=== PATIENT | female | born 1995 | race Caucasian/White ===

== ENCOUNTER → 2019-07-26 | Outpatient (REF) | payer OTHER ==
[2019-07-26 13:56] LABS: HEMATOCRIT 41.1 % (36.0-47.0); MEAN CORPUSCULAR HGB CONC 34.1 g/dl (32.0-36.5); PLATELET COUNT, AUTOMATED 176 10^3/uL (150-450); RED BLOOD COUNT 4.67 10^6/uL (4.00-5.40); WHITE BLOOD COUNT 9.2 10^3/uL (4.0-10.0)
[2019-07-26 14:56] LABS: HCG, SERUM QUANTITATIVE 122409 MIU/ML; HEPATITIS C VIRUS ABY INDEX 0.1 INDEX (<0.8); HIV 1&2 SCREEN CENTAUR NEGATIVE (NEGATIVE); RUBELLA IgG QUALITATIVE IMMUNE (IMMUNE)
== END ==
LOC: M LAB REF 12:41
PROVIDERS: ATTEND Obstetrics & Gynecology
DX: Z34.81 Encounter for supervision of other normal pregnancy, first trimester (principal)

== ENCOUNTER 2019-11-04 14:06 | Outpatient (CLI) | payer OTHER ==
[~2019-11-04] VITALS: Ht 165.1 cm; Wt 90.0 kg
[2019-11-04 14:24] VITALS: BP 124/68
[2019-11-04] MEDS ORDERED: ZYRTTAB8 PO (14:30)
[2019-11-04] MEDS ORDERED: ACET1LIQ PO (14:30)
[2019-11-04] MEDS ORDERED: STUACAP PO (14:30)
[2019-11-04 15:19] LABS: APPEARANCE, URINE CLEAR (CLEAR); BACTERIA, URINE AUTO 1+ (NEGATIVE); BILIRUBIN, URINE AUTO NEGATIVE (NEGATIVE); BLOOD, URINE BLOOD 1+ (NEGATIVE); COLOR, URINE STRAW (YELLOW); GLUCOSE, URINE (UA) AUTO NEGATIVE (NEGATIVE); KETONE, URINE AUTO NEGATIVE (NEGATIVE); LEUKOCYTE ESTERASE, URINE AUTO NEGATIVE (NEGATIVE); NITRITE, URINE AUTO NEGATIVE (NEGATIVE); PROTEIN, URINE AUTO NEGATIVE (NEGATIVE); RBC, URINE AUTO 0 /HPF (0-3); SPECIFIC GRAVITY URINE AUTO 1.006 (1.002-1.035); SQUAMOUS EPITHELIAL CELL UR AU 2 /HPF (0-6); UROBILINOGEN, URINE AUTO 0.2 mg/dL (0.0-2.0); WBC, URINE AUTO 3 /HPF (0-3)
[2019-11-04] MEDS ORDERED: ONDANSETRON 4MG/2ML VIAL (J2405) As Ordered ONE (16:25)
[2019-11-04] MEDS ORDERED: ONDANSETRON 4MG/2ML VIAL (J2405) IV SCH (16:30)
[2019-11-04 16:43] LABS: HEMATOCRIT 33.8 % (36.0-47.0); MEAN CORPUSCULAR HEMOGLOBIN 29.2 pg (27.0-33.0); MEAN CORPUSCULAR HGB CONC 32.5 g/dl (32.0-36.5); MEAN CORPUSCULAR VOLUME 89.7 fl (80.0-96.0); PLATELET COUNT, AUTOMATED 127 10^3/uL (150-450); RED BLOOD COUNT 3.77 10^6/uL (4.00-5.40); WHITE BLOOD COUNT 11.6 10^3/uL (4.0-10.0)
[2019-11-04 17:05] VITALS: BP_SYST 131; BP_SYST 137; BP_DIAS 77
[2019-11-04 17:12] LABS: ALBUMIN 2.7 GM/DL (3.2-5.2); ALT/SGPT 20 U/L (12-78); BILIRUBIN,TOTAL 0.4 MG/DL (0.2-1.0); BLOOD UREA NITROGEN 6 MG/DL (7-18); CALCIUM LEVEL 8.5 MG/DL (8.5-10.1); CARBON DIOXIDE LEVEL 26 MEQ/L (21-32); CHLORIDE LEVEL 106 MEQ/L (98-107); GLOMERULAR FILTRATION RATE > 60.0 (>60); GLUCOSE, FASTING 76 MG/DL (70-100); POTASSIUM SERUM 3.9 MEQ/L (3.5-5.1); SODIUM LEVEL 140 MEQ/L (136-145); TOTAL PROTEIN 5.8 GM/DL (6.4-8.2)
[2019-11-04] MEDS: MORPHINE 4 MG/ML 1ML VIAL/SYRINGE (J2270) IV PRN ×2 (17:14→19:29)
--- NOTE | 2019-11-04 17:19 | IPNPDOC ---
Text Note Date of Service The patient was seen on 11/04/19. NOTE Subjective: Patient is a 24-year-old female who is a at 27.4 weeks ges tation with an DIVINA of 02/03/20 based off of her LMP and consistent with her first trimester ultrasound. She initiated care in her first trimester with [facility] and transferred care to [facility]. Her has been uncomplicated up until this point. She presents to L&D with complaints of pain in the right side of her back that started this morning. She reports that the pain is localized ot the right side and slightly wraps to the front. She also reports nausea and vomiting that comes in waves. She states the pain is constant and dull and rates it an 8/10. The patient reports that she is also having a difficult time voiding. She feels like she has to but she finds it harder to do it. She denies cramping, contractions, leaking of fluid, or vaginal bleeding. She reports active movement. Since the patient has had 2 liters of fluid she reports it is much easier to void and has voided more than 2 times. Medical History: seasonal allergies Surgical history: wisdom tooth Social History: single, non-smoker, no history of alcohol abuse or drug abuse. She denies history of physical abuse, emotional abuse, or sexual abuse. Family History: Paternal grandfather due to unknown causes and maternal grandfather due to accident. Objective: See ultrasound report and labs below. A+O x3. Respiratory rate is regular without use of accessory muscles. Abdomen is soft and non-tender to palpation. +CVA tenderness of right flank. FHR 125, moderate variability, positive accelerations, no decelerations. Contractions occasional lasting 30-60 seconds. Assessment: IUP at 27.4 weeks gestation, right-sided hydronephrosis with obstruction, thrombocytopenia Plan: Dr. Bruner consulted on plan of care. Patient to stay in L&D for pain management and we will consult urology tomorrow morning. Reviewed diagnosis of hydronephrosis with right sided obstruction with patient and mother. Reviewed options for pain management. Plan of care reviewed with patient. Will continue with LR at 125 cc per hour. Will continue to do external FM every 4 hours. VS,Fishbone, I+O VS, Fishbone, I+O Item Value Date Time Sodium Level 140 MEQ/L 11/04/19 1622 Potassium Level 3.9 MEQ/L 11/04/19 1622 Chloride Level 106 MEQ/L 11/04/19 1622 Carbon Dioxide Level 26 MEQ/L 11/04/19 1622 Anion Gap 8 MEQ/L 11/04/19 1622 Blood Urea Nitrogen 6 MG/DL L 11/04/19 1622 Creatinine 0.80 MG/DL 11/04/19 1622 Glomerular Filtration Rate > 60.0 11/04/19 1622 Fasting Glucose 76 MG/DL 11/04/19 1622 Calcium Level 8.5 MG/DL 11/04/19 1622 Total Bilirubin 0.4 MG/DL 11/04/19 1622 Aspartate Amino Transf (AST/SGOT) 22 U/L 11/04/19 1622 Alanine Aminotransferase (ALT/SGPT) 20 U/L 11/04/19 1622 Alkaline Phosphatase 88 U/L 11/04/19 1622 Total Protein 5.8 GM/DL L 11/04/19 1622 Albumin 2.7 GM/DL L 11/04/19 1622 Albumin/Globulin Ratio 0.87 L 11/04/19 1622 Laboratory Tests 11/04/19 16:22 Vital Signs Date Time Temp Pulse Resp B/P (MAP) Pulse Ox O2 Delivery O2 Flow Rate FiO2 11/04/19 17:14 18 Room Air 11/04/19 17:05 97.6 91 137/77 (97) Item Value Date Time Urine Color STRAW 11/04/19 1459 Urine Appearance CLEAR 11/04/19 1459 Urine pH 8.0 UNITS 11/04/19 1459 Urine Specific Tucker 1.006 11/04/19 1459 Urine Protein NEGATIVE mg/dL 11/04/19 1459 Urine Glucose (Auto)(UA) NEGATIVE mg/dL 11/04/19 1459 Urine Ketones (Auto) NEGATIVE mg/dL 11/04/19 1459 Urine Blood 1+ H 11/04/19 1459 Urine Nitrite NEGATIVE 11/04/19 1459 Urine Bilirubin NEGATIVE 11/04/19 1459 Urine Urobilinogen 0.2 mg/dL 11/04/19 1459 Urine Leukocyte Esterase (Auto) NEGATIVE 11/04/19 1459 Urine WBC (Auto) 3 /HPF 11/04/19 1459 Urine RBC (Auto) 0 /HPF 11/04/19 1459 Urine Hyaline Casts (Auto) 0 /LPF 11/04/19 1459 Urine Bacteria (Auto) 1+ H 11/04/19 1459 Urine Squamous Epithelial Cells 2 /HPF 11/04/19 1459 EXAMINATION REQUESTED: RENAL US REASON FOR PATIENT VISIT: RIGHT SIDE BACK PAIN REASON FOR EXAM/COMMENT: right sided flank pain Urinary tract sonography: History: Right flank pain. Findings: Scanning of the level urinary bladder demonstrates multiple normal ureteral jet phenomenon emanating from the left ureter. Note the ingestion is seen on color Doppler interrogation of the bladder lumen from the right ureter during the exam. heart rate is recorded at 153 beats per minute. Renal cortical echogenicity pattern is normal and contours are smooth. There is moderate right-sided hydronephrosis. The right kidney is enlarged compared to the left consistent with significant obstructive uropathy. The right kidney measures 14.7 x 6.3 x 6.5 cm. Left renal dimensions are 11.8 x 5.0 x 5.2 cm. No left-sided hydronephrosis is seen. No mass lesion is observed. Impression: Moderate right-sided hydronephrosis with enlargement of the right kidney and absence of emptying ureteral jet on the right consistent with obstructive uropathy. No stone is seen. A normal left kidney. NADER CALLAWAY CNM Nov 04, 2019 17:19
[2019-11-04] MEDS ORDERED: OXYC1TAB23 PO (18:37)
--- NOTE | 2019-11-04 18:45 | REP ---
Urinary tract sonography: History: Right flank pain. Findings: Scanning of the level urinary bladder demonstrates multiple normal ureteral jet phenomenon emanating from the left ureter. Note the ingestion is seen on color Doppler interrogation of the bladder lumen from the right ureter during the exam. heart rate is recorded at 153 beats per minute. Renal cortical echogenicity pattern is normal and contours are smooth. There is moderate right-sided hydronephrosis. The right kidney is enlarged compared to the left consistent with significant obstructive uropathy. The right kidney measures 14.7 x 6.3 x 6.5 cm. Left renal dimensions are 11.8 x 5.0 x 5.2 cm. No left-sided hydronephrosis is seen. No mass lesion is observed. Impression: Moderate right-sided hydronephrosis with enlargement of the right kidney and absence of emptying ureteral jet on the right consistent with obstructive uropathy. No stone is seen. A normal left kidney. Electronically Signed by Bruce Da Silva MD 11/05/2019 03:23 P
[2019-11-04] MEDS ORDERED: PERCOCET 5MG/325MG TAB PO ONE (19:00)
[2019-11-04] MEDS ORDERED: PERCOCET 5MG/325MG TAB PO PRN (19:15)
[2019-11-04] MEDS: LR 1,000 ML IV SCH (19:30)
[2019-11-04 22:43] VITALS: BP 115/66
[2019-11-04] MEDS ORDERED: PROMETHAZINE INJ 25 MG/ML VIAL (J2550) IV ONE (23:00)
[2019-11-04] MEDS ORDERED: BUTORPHANOL 2 MG/ML INJ (J0595) IV ONE (23:00)
[2019-11-05] MEDS: LR 1,000 ML IV SCH ×2 (03:39→12:13)
[2019-11-05 04:02] VITALS: BP 98/56
[2019-11-05 07:28] VITALS: BP 90/53
[2019-11-05 07:30] VITALS: BP 117/65
--- NOTE | 2019-11-05 09:28 | REP ---
Urinary tract sonography: History: Right renal obstruction. The patient reports improvement in symptoms. Comparison is made with a urinary tract sonography done the previous day. Findings: Scanning at the level urinary bladder is unremarkable. heart rate is recorded during the exam of 139 beats per minute. Renal cortical echogenicity pattern is normal and contours are smooth on both sides. Moderate right-sided hydronephrosis persists essentially unchanged. No hydronephrosis is seen on the left. The right kidney is more symmetrical with the left in size today measuring 13.0 x 7.1 x 7.0 cm. Left renal dimensions are 12.1 x 4.3 x 4.9 cm. Doppler resistive indices in the kidneys are 0.65 on the right and 0.63 on the left. Impression: Moderate right-sided hydronephrosis persists. The right kidney appears somewhat less swollen. Otherwise unchanged. Electronically Signed by Bruce Da Silva MD 11/05/2019 03:25 P
[2019-11-05 11:01] VITALS: BP 97/51
[2019-11-05 12:49] VITALS: BP 99/62
[2019-11-05 12:50] VITALS: BP 101/69
--- NOTE | 2019-11-05 12:55 | IPN ---
DATE: 11/04/2019 SUBJECTIVE: 24-year-old, (G) 1, female at 27 and 5/7 weeks gestation, hospital day #2 with right flank pain. Pain resolved completely overnight. Urination is normal. She has no blood in her urine. She is not requiring any pain medicines for the entire evening. OBJECTIVE: Afebrile. Vital signs stable. Lungs clear. Heart regular rate and rhythm. Abdomen nontender, gravid. No CVA tenderness. heart tones category I, contractions rare. Extremities nontender. Repeat renal ultrasound improvement in hydronephrosis on the right. Normal left kidney. ASSESSMENT: 24-year-old, (G) 1, 27 and 5/7 weeks gestation with obstruction of the right renal collecting system that has now resolved spontaneously. I spoke with Dr. Delgadillo from urology who agrees that no further intervention is necessary at this time. Patient will be discharged home. She will continue hydration. She will followup in the office on 11/14/2019 for a appointment.
== END 2019-11-05 13:11 | disposition home or self-care (01) ==
LOC: M LDO 14:06
PROVIDERS: ATTEND Advanced Practice Midwife
DX: O26.893 Other specified pregnancy related conditions, third trimester (principal); M54.5 Low back pain; O21.2 Late vomiting of pregnancy; R39.198 Other difficulties with micturition; O99.119 Other diseases of the blood and blood-forming organs and certain disorders involving the immune mechanism complicating pregnancy, unspecified trimester; D69.6 Thrombocytopenia, unspecified; O99.89 Other specified diseases and conditions complicating pregnancy, childbirth and the puerperium; N13.2 Hydronephrosis with renal and ureteral calculous obstruction; Z3A.27 27 weeks gestation of pregnancy
CPT/HCPCS: 36415; 59025; 76775; 80053; 81001; 85027; 87086; 96361; 96374; 96375; 96376; G0378; G0463; J0595; J2270; J2405

== ENCOUNTER → 2019-11-11 | Outpatient (CLI) | payer OTHER ==
[~2019-11-11] MED LIST: ACET1LIQ PO; OXYC1TAB23 PO; STUACAP PO; ZYRTTAB8 PO
[2019-11-11 18:10] LABS: HEMATOCRIT 34.5 % (36.0-47.0); MEAN CORPUSCULAR HEMOGLOBIN 28.9 pg (27.0-33.0); MEAN CORPUSCULAR HGB CONC 31.9 g/dl (32.0-36.5); MEAN CORPUSCULAR VOLUME 90.6 fl (80.0-96.0); PLATELET COUNT, AUTOMATED 159 10^3/uL (150-450); RED BLOOD COUNT 3.81 10^6/uL (4.00-5.40); WHITE BLOOD COUNT 9.4 10^3/uL (4.0-10.0)
== END ==
LOC: M PLALAB 13:57
PROVIDERS: ATTEND Advanced Practice Midwife
DX: Z34.03 Encounter for supervision of normal first pregnancy, third trimester (principal)

== ENCOUNTER → 2020-01-02 | Outpatient (REF) | payer OTHER | LOC: M SFHCWAGY 16:57 | PROVIDERS: ATTEND Advanced Practice Midwife | DX: Z36.89 Encounter for other specified antenatal screening (principal); Z3A.00 Weeks of gestation of pregnancy not specified ==

== ENCOUNTER → 2020-01-02 | Outpatient (REF) | payer OTHER ==
[2020-01-02 18:44] LABS: INFLUENZA A AMPLIFICATION NEGATIVE (NEGATIVE); INFLUENZA B AMPLIFICATION POSITIVE (NEGATIVE)
== END ==
LOC: M SFHCWAGY 16:48
PROVIDERS: ATTEND Advanced Practice Midwife
DX: R05 Cough (principal)

== ENCOUNTER → 2020-01-08 | Outpatient (CLI) | payer OTHER ==
[2020-01-08 14:05] LABS: HEMATOCRIT 38.6 % (36.0-47.0); HEMOGLOBIN 12.3 g/dl (12.0-15.5); MEAN CORPUSCULAR HEMOGLOBIN 27.5 pg (27.0-33.0); MEAN CORPUSCULAR HGB CONC 31.9 g/dl (32.0-36.5); MEAN CORPUSCULAR VOLUME 86.2 fl (80.0-96.0); PLATELET COUNT, AUTOMATED 137 10^3/uL (150-450); RED BLOOD COUNT 4.48 10^6/uL (4.00-5.40); WHITE BLOOD COUNT 7.4 10^3/uL (4.0-10.0)
== END ==
LOC: M PLALAB 12:27
PROVIDERS: ATTEND Advanced Practice Midwife
DX: Z34.03 Encounter for supervision of normal first pregnancy, third trimester (principal); Z36.89 Encounter for other specified antenatal screening

== ENCOUNTER 2020-01-18 13:05 | Inpatient (IN) | payer BC, OTHER ==
[2020-01-18] VITALS (8 sets, daily range): BP systolic 128–145; BP diastolic 71–91
[~2020-01-18] VITALS: Ht 167.6 cm; Wt 96.6 kg
[2020-01-18] MEDS ORDERED: PENICILLIN G POTASSIUM IV 5 MU in D5W MINI-BAG PLUS 100 ML IV STA (13:30)
[2020-01-18 13:57] LABS: HEMATOCRIT 39.4 % (36.0-47.0); HEMOGLOBIN 12.5 g/dl (12.0-15.5); MEAN CORPUSCULAR HEMOGLOBIN 26.8 pg (27.0-33.0); MEAN CORPUSCULAR HGB CONC 31.7 g/dl (32.0-36.5); MEAN CORPUSCULAR VOLUME 84.4 fl (80.0-96.0); PLATELET COUNT, AUTOMATED 175 10^3/uL (150-450); RED BLOOD COUNT 4.67 10^6/uL (4.00-5.40); WHITE BLOOD COUNT 11.8 10^3/uL (4.0-10.0)
[2020-01-18 14:14] LABS: ALT/SGPT 20 U/L (12-78); BILIRUBIN,TOTAL 0.5 MG/DL (0.2-1.0); CREATININE FOR GFR 0.62 MG/DL (0.55-1.30); GLOMERULAR FILTRATION RATE > 60.0 (>60); LDH LACTATE DEHYDROGENASE 216 U/L (84-246); URIC ACID 3.6 MG/DL (2.6-6.0)
--- NOTE | 2020-01-18 14:21 | HPEPDOC ---
Obstetrical History & Physical General Date of Admission Jan 18, 2020 at 13:25 Primary Care Physician: NADER CALLAWAY CNM History of Present Illness Patient is a 24 year-old female who is a at 38.2 weeks gestation with an DIVINA of 02/03/20 based off of her LMP and consistent with her first trimester ultrasound. She initiated care in her first trimester with [facility] and transferred care at 29 weeks to [facility]. Her has been complicated by hydronephrosis at 27 weeks with a blockage that resolved and gestational thrombocytopenia. She presents to L&D with complaints of leaking of fluid. She reports she had a gush of fluid at 11:00 this morning that was clear fluid and she continues to leak. She does report cramping. She reports active movement and denies vaginal bleeding. Chief Complaint: Active Labor, Rupture of membranes Information Provided By: Patient Age: 24 : 1 Term: 0 Pre-term: 0 Abortions: 0 Livin Care Care: Good Care Dating Final EDC: Feb 03, 2020 Final EDC by: LMP EGA at Admission: 38.2 Antepartum Course Diagnos(e)s thrombocytopenia hydronephrosis with blockage-resolved preeclampsia-diagnosed today Height (inches): 65 Pre- weight (lbs.): 160 Admission Weight (lbs.): 218 Change in Weight (lbs.): 58 Past Medical History Past Obstetrical History : Past Obstetrical History: [employer] History: No pertinent history Past Medical History Medical History No current conditions Surgical History: [place] teeth Family History Significant Family History: No pertinent family hx Social History Marital Status: Single Family situation: Spouse/partner home Psychosocial History: No pertinent psych hx * Smoker: non-smoker Alcohol: Denies Drugs: denies Abuse Violence Screening Have you been hit/kicked/slapp: No Have you been sexually assault: No Imunizations Tdap status: current Allergies Coded Allergies: No Known Drug Allergies (Verified Allergy, Unknown, 11/04/19) Medications Miscellaneous Medications Pnv No.63/Iron,Carb/Folic/Dha (Wes One Capsule) 1 Each Capsule, 1 CAP PO Physical Examination Physical Examination GENERAL: Alert and oriented times three. BREAST: . ABDOMEN: Gravid and non-tender to touch. FETUS: Is vertex (VTX) by sterile vaginal examination (SVE), fetus is vertex (VTX) by [place]. HEART RATE: Regular rate and rhythm. LUNGS: Clear to auscultation (CTA). EXTREMITIES: Bilateral edema of legs and feet. No clonus. Deep tendon reflexes (DTRs) + 2. Vital Signs/I&O Vital Signs Label Value Date Time Patient Temperature 97.6 degrees F 01/18/20 1319 Temperature Source Temporal 01/18/20 1319 Pulse 101 01/18/20 1319 Respiratory Rate 20 bpm 01/18/20 1319 Blood Pressure Assessment 145/90 (108) 01/18/20 1319 Source Automatic Cuff (NIBP) Laboratory Data [facility] Item Value Date Time Urine Random Creatinine 191.0 MG/DL 01/18/20 1407 Urine Random Total Protein 72.0 MG/DL H 01/18/20 1407 Item Value Date Time Creatinine 0.62 MG/DL 01/18/20 1339 Glomerular Filtration Rate > 60.0 01/18/20 1339 Uric Acid 3.6 MG/DL 01/18/20 1339 Total Bilirubin 0.5 MG/DL 01/18/20 1339 Aspartate Amino Transf (AST/SGOT) 20 U/L 01/18/20 1339 Alanine Aminotransferase (ALT/SGPT) 20 U/L 01/18/20 1339 Lactate Dehydrogenase 216 U/L 01/18/20 1339 CBC/BMP Item Value Date Time White Blood Count 11.8 10^3/uL H 01/18/20 1338 Red Blood Count 4.67 10^6/uL 01/18/20 1338 Hemoglobin 12.5 g/dl 01/18/20 1338 Hematocrit 39.4 % 01/18/20 1338 Mean Corpuscular Volume 84.4 fl 01/18/20 1338 Mean Corpuscular Hemoglobin 26.8 pg L 01/18/20 1338 Mean Corpuscular Hemoglobin Concent 31.7 g/dl L 01/18/20 1338 Red Cell Distribution Width 14.5 % 01/18/20 1338 Platelet Count 175 10^3/uL 01/18/20 1338 Nucleated Red Blood Cells % (auto) 0.0 % 01/18/20 1338 Urine Culture: No Growth Pertinent Laboratoy Data Blood Type: O+ RBC Antibody Screen: Negative HIV: Negative Hepatitis B: Negative Hepatitis C: Negative Rapid Plasma Reagin: Nonreactive Rubella: Immune Chlamydia/Gonorrhea: Negative Group B Streptococcus: Positive Glucose Tolerance Test: 109 Anatomy Ultrasound Placenta Location: Anterior Normal Anatomy: Yes Placenta Previa: No Vaginal Examination Dilation: 5 cm Effacement: 80% Station: -1 Cervical Consistency: Soft Cervical Position: Anterior Presentation: Cephalic presentation Position: Vertex (occiput) Assessment Heart Rate (FHR): 135 Variability: Moderate Accelerations: Positive Decelerations: None Tocometer Contractions: Yes Frequency: regular, other (2-3 minutes) Strength: palpated as strong Multi-drug resistant Organism: No history of MDRO Assessment/Plan Assessment IUP at 38.2 weeks gestation active labor at term Category I FHR tracing GBS positive preclampsia Plan Admit to L&D. OOB ad eliz. Diet: clears. Group B Streptococcus positive. Start antibiotics per order. Labs and intravenous (IV) per unit protocol. Preeclamptic labs and spot urine obtained due to elevated BP. Lactated Ringers (LR): Bolus as needed and 500 cc prior to epidural if patient desires one. Anesthesia consult per patient's request. Anticipate cervical change and . C-S as appropriate. NADER CALLAWAY CNM Jan 18, 2020 14:21
[2020-01-18] MEDS ORDERED: OXYTOCIN 30 UNITS IN 0.9% NaCl 500ML IV BAG (J2590) As Ordered ONE (15:56)
[2020-01-18] MEDS ORDERED: PENICILLIN G POTASSIUM IV 2.5 MU in IV 1 EA IV SCH (18:00)
[2020-01-18] MEDS ORDERED: DOCUSATE SODIUM 100 MG CAP PO PRN (18:15)
[2020-01-18] MEDS ORDERED: MEASLES,MUMPS,RUBELLA VACCINE INJ (MMR-II) (90707) SC SCH (18:15)
[2020-01-18] MEDS ORDERED: ACETAMINOPHEN 500 MG TAB PO PRN (18:15)
[2020-01-18] MEDS ORDERED: METHYLERGONOVINE MALEATE 0.2 MG TAB PO PRN (18:15)
[2020-01-18] MEDS ORDERED: ANUSOL HC CREAM 30GM TOP PRN (18:15)
[2020-01-18] MEDS ORDERED: ACETAMINOPHEN TAB 650MG DOSE (2X325MG) PO PRN (18:15)
[2020-01-18] MEDS ORDERED: RHOGAM 300 MCG (1500 IU) INJ (J2790) IM SCH (18:15)
[2020-01-18] MEDS ORDERED: DIBUCAINE 1% OINTMENT 30GM TOP PRN (18:15)
[2020-01-18] MEDS ORDERED: IBUPROFEN 600 MG TAB PO PRN (18:15)
[2020-01-18] MEDS ORDERED: LIDOCAINE 1% MDV 20ML VIAL INFIL ONE (18:15)
--- NOTE | 2020-01-18 18:20 | DNPDOC ---
[facility] Delivery Note Delivery Note DATE OF DELIVERY: 01/18/2020 at 1656 PREDELIVERY DIAGNOSIS: 38-2/7 weeks' gestation and labor. POST DELIVERY DIAGNOSIS: Delivered. PROCEDURE: Spontaneous vaginal delivery. PRODUCTION MAINTENANCE MECHANIC: Nader Marrero CNM, VICENTA ANESTHESIA: none. ESTIMATED BLOOD LOSS: 350 mL. FINDINGS: 7 pounds 2 ounces; 3230 grams; male infant, Score 8/8, nuchal cord times 1 tight, preeclampsia. DELIVERY SUMMARY: Patient is a 24-year-old female who is now a at 38.2 weeks gestation who presented to L&D with spontaneous rupture and active labor. She progressed to fully dilated at 1618 and pushed to a living male in the OA position with restitution to ROT at 1656. A tight nuchal cord was noted. The anterior shoulder delivered with ease and the corpus delivered via [place]. The baby was placed on the maternal abdomen, [id number], active and crying. The cord was clamped after pulsation ceased and cut by the FOB. The placenta delivered spontaneously at 1707. Uterine hemostasis was achieved via rapid infusion of IV Pitocin and fundal massage. The perineum, vagina, and cervix was inspected and the patient was found to have a right labial split. Lidocaine 1% was used for the repair. A 4.0 Vicryl Rapide 4.0 RB-1 was used to approximate the labia. Mom and baby are in stable condition. They plan on naming their son Tosin Lynn. All counts of instruments, sharps and sponges were correct. NADER MARRERO CNM Jan 18, 2020 18:20
[2020-01-18] MEDS ORDERED: OXYTOCIN DRIP 30 UNITS in IV 1 EA IV SCH (18:30)
[2020-01-18] MEDS: IBUPROFEN 800 MG TAB PO PRN (23:02)
[2020-01-19 06:00] VITALS: BP 132/79
[2020-01-19 07:36] LABS: ALT/SGPT 13 U/L (12-78); BILIRUBIN,TOTAL 0.5 MG/DL (0.2-1.0); CREATININE FOR GFR 0.62 MG/DL (0.55-1.30); GLOMERULAR FILTRATION RATE > 60.0 (>60); LDH LACTATE DEHYDROGENASE 211 U/L (84-246); URIC ACID 3.6 MG/DL (2.6-6.0)
[2020-01-19] MEDS: PRENATAL VITAMINS CHEWABLE TABLET PO SCH (08:27)
[2020-01-19] MEDS: IBUPROFEN 800 MG TAB PO PRN (17:22)
[2020-01-19 18:00] VITALS: BP 137/84
[2020-01-20] MEDS: IBUPROFEN 800 MG TAB PO PRN ×2 (02:03→16:21)
[2020-01-20] MEDS ORDERED: IBUP80TA PO (04:33)
[2020-01-20] MEDS ORDERED: ACET-683 PO (04:33)
[2020-01-20 05:00] VITALS: BP 133/85
[2020-01-20] MEDS: PRENATAL VITAMINS CHEWABLE TABLET PO SCH (08:44)
== END 2020-01-20 18:40 | disposition home or self-care (01) | DRG 560 ==
LOC: M LDO 13:05 → M LDI 13:25 → M OBS 19:23
PROVIDERS: ADMIT Advanced Practice Midwife; ATTEND Advanced Practice Midwife
PROC: 10E0XZZ Delivery of Products of Conception, External Approach (ICD-10-PCS; principal; 2020-01-18)
PROC: 0HQ9XZZ Repair Perineum Skin, External Approach (ICD-10-PCS; 2020-01-18)
DX: O14.04 Mild to moderate pre-eclampsia, complicating childbirth (principal); Z3A.38 38 weeks gestation of pregnancy; Z37.0 Single live birth; O99.89 Other specified diseases and conditions complicating pregnancy, childbirth and the puerperium; N13.30 Unspecified hydronephrosis; O99.12 Other diseases of the blood and blood-forming organs and certain disorders involving the immune mechanism complicating childbirth; D69.6 Thrombocytopenia, unspecified; O99.824 Streptococcus B carrier state complicating childbirth; O69.1XX0 Labor and delivery complicated by cord around neck, with compression, not applicable or unspecified; O70.0 First degree perineal laceration during delivery

== ENCOUNTER 2021-10-24 15:35 | Inpatient (IN) | payer BC, OTHER ==
[~2021-10-24] VITALS: Ht 165.1 cm; Wt 64.0 kg
[~2021-10-24 15:35] MED LIST changes: +ACET-683 PO; +ACET160L16 PO; -ACET1LIQ PO; +IBUP80TA PO
[2021-10-24] MEDS ORDERED: LEXA1TAB2 PO (15:45)
[2021-10-24] MEDS ORDERED: PRENTAB53 PO (15:45)
[2021-10-24] MEDS ORDERED: METO10TA2 PO (15:45)
[2021-10-26] MEDS ORDERED: ONDA4TAB6 PO (04:48)
[2021-10-26] MEDS ORDERED: Promethazine Suppository PR (04:48)
[2021-10-26] MEDS ORDERED: TRAN1DIS4 TOP (04:48)
[2021-10-28 14:00] VITALS: BP 118/58
== END 2021-10-28 15:13 | disposition home or self-care (01) | DRG 566 ==
LOC: M ED 15:35 → M ED INP 10-25 00:57 → ENRESERV 10-25 01:31 → M OBS 10-25 02:17
PROVIDERS: ADMIT Specialist; ATTEND Specialist
DX: O21.0 Mild hyperemesis gravidarum (principal); Z3A.01 Less than 8 weeks gestation of pregnancy; Z79.899 Other long term (current) drug therapy; Z20.822 Contact with and (suspected) exposure to COVID-19; O99.611 Diseases of the digestive system complicating pregnancy, first trimester; K59.00 Constipation, unspecified

== ENCOUNTER → 2021-12-01 | Outpatient (CLI) | payer OTHER, BC ==
[~2021-12-01] MED LIST changes: +LEXA1TAB2 PO; +METO10TA2 PO; +ONDA4TAB6 PO; +PRENTAB53 PO; +Promethazine Suppository PR; +TRAN1DIS4 TOP
[2021-12-01 11:01] LABS: HEMATOCRIT 40.5 % (36.0-47.0); HEMOGLOBIN 13.5 g/dl (12.0-15.5); MEAN CORPUSCULAR HEMOGLOBIN 29.7 pg (27.0-33.0); MEAN CORPUSCULAR HGB CONC 33.3 g/dl (32.0-36.5); MEAN CORPUSCULAR VOLUME 89.2 fl (80.0-96.0); PLATELET COUNT, AUTOMATED 190 10^3/uL (150-450); RED BLOOD COUNT 4.54 10^6/uL (4.00-5.40); WHITE BLOOD COUNT 8.9 10^3/uL (4.0-10.0)
[2021-12-01 11:35] LABS: ALT/SGPT 20 U/L (12-78); BILIRUBIN,TOTAL 0.7 MG/DL (0.2-1.0); CREATININE FOR GFR 0.45 MG/DL (0.55-1.30); GLOMERULAR FILTRATION RATE > 60.0 (>60); LDH LACTATE DEHYDROGENASE 140 U/L (84-246); URIC ACID 2.3 MG/DL (2.6-6.0)
[2021-12-01 12:10] LABS: TOTAL PROTEIN,RANDOM URINE 15.5 MG/DL (0.0-12.0)
[2021-12-01 12:11] LABS: HEPATITIS C VIRUS ABY INDEX < 0.0 INDEX (<0.8); HIV 1&2 SCREEN CENTAUR NEGATIVE (NEGATIVE)
[2021-12-01 12:15] LABS: GC DNA AMPLIFICATION NEGATIVE (NEGATIVE)
== END ==
LOC: M PLALAB 09:00
PROVIDERS: ATTEND Advanced Practice Midwife
DX: O09.291 Supervision of pregnancy with other poor reproductive or obstetric history, first trimester (principal)

== ENCOUNTER → 2022-01-14 | Outpatient (CLI) | payer OTHER, BC | LOC: M WHC 13:21 | PROVIDERS: ATTEND Advanced Practice Midwife | DX: O09.292 Supervision of pregnancy with other poor reproductive or obstetric history, second trimester (principal); Z3A.19 19 weeks gestation of pregnancy ==

== ENCOUNTER → 2022-01-26 | Outpatient (CLI) | payer OTHER, BC | LOC: M PLALAB 07:58 | PROVIDERS: ATTEND Obstetrics & Gynecology | DX: Z34.82 Encounter for supervision of other normal pregnancy, second trimester (principal) ==

== ENCOUNTER → 2022-03-11 | Outpatient (CLI) | payer OTHER, BC ==
[2022-03-11 15:40] LABS: HEMATOCRIT 38.3 % (36.0-47.0); HEMOGLOBIN 12.8 g/dl (12.0-15.5); MEAN CORPUSCULAR HEMOGLOBIN 30.3 pg (27.0-33.0); MEAN CORPUSCULAR HGB CONC 33.4 g/dl (32.0-36.5); MEAN CORPUSCULAR VOLUME 90.8 fl (80.0-96.0); PLATELET COUNT, AUTOMATED 150 10^3/uL (150-450); RED BLOOD COUNT 4.22 10^6/uL (4.00-5.40); WHITE BLOOD COUNT 9.1 10^3/uL (4.0-10.0)
[2022-03-11 17:56] LABS: GC DNA AMPLIFICATION NEGATIVE (NEGATIVE)
== END ==
LOC: M PLALAB 11:43
PROVIDERS: ATTEND Obstetrics & Gynecology
DX: Z34.92 Encounter for supervision of normal pregnancy, unspecified, second trimester (principal); Z3A.25 25 weeks gestation of pregnancy

== ENCOUNTER → 2022-05-11 | Outpatient (REF) | payer OTHER, BC | LOC: M SFHCWAGY 13:08 | PROVIDERS: ATTEND Advanced Practice Midwife | DX: Z36.85 Encounter for antenatal screening for Streptococcus B (principal); O09.293 Supervision of pregnancy with other poor reproductive or obstetric history, third trimester; Z3A.00 Weeks of gestation of pregnancy not specified ==

== ENCOUNTER 2022-05-27 12:02 | Inpatient (IN) | payer BC, OTHER ==
[2022-05-27] VITALS (15 sets, daily range): BP systolic 112–154; BP diastolic 61–90
[~2022-05-27] VITALS: Ht 167.6 cm; Wt 95.5 kg
[2022-05-27] MEDS ORDERED: PENICILLIN G POTASSIUM IV 5 MU in D5W MINI-BAG PLUS 100 ML IV STA (12:31)
[2022-05-27] MEDS ORDERED: CARBOPROST TROMETHAMINE 250 MCG/ML AMP IM PRN (12:35)
[2022-05-27] MEDS ORDERED: TRANEXAMIC ACID INJection 1,000 MG in NS 100 ML IV PRN (12:35)
[2022-05-27] MEDS ORDERED: LIDOCAINE 1% MDV 20ML VIAL INFIL PRN (12:35)
[2022-05-27] MEDS ORDERED: OXYTOCIN DRIP 30 UNITS in IV 1 EA IV PRN (12:35)
[2022-05-27] MEDS ORDERED: METHYLERGONOVINE MALEATE 0.2 MG/ML VIAL (J2210) IM PRN (12:35)
[2022-05-27] MEDS ORDERED: HOME MED LIST COMPLETE! XX SCH (12:45)
[2022-05-27 12:51] LABS: HEMATOCRIT 39.3 % (36.0-47.0); HEMOGLOBIN 12.8 g/dl (12.0-15.5); MEAN CORPUSCULAR HGB CONC 32.6 g/dl (32.0-36.5); PLATELET COUNT, AUTOMATED 146 10^3/uL (150-450); RED BLOOD COUNT 4.57 10^6/uL (4.00-5.40); WHITE BLOOD COUNT 10.8 10^3/uL (4.0-10.0)
[2022-05-27] MEDS ORDERED: OXYTOCIN DRIP 30 UNITS in IV 1 EA IV SCH (16:50)
[2022-05-27] MEDS: PENICILLIN G POTASSIUM IV 2.5 MU in IV 1 EA IV SCH ×2 (17:03→21:05)
[2022-05-27 17:28] LABS: ALT/SGPT 21 U/L (12-78); BILIRUBIN,TOTAL 0.5 MG/DL (0.2-1.0); CREATININE FOR GFR 0.63 MG/DL (0.55-1.30); GLOMERULAR FILTRATION RATE > 60.0 (>60); LDH LACTATE DEHYDROGENASE 189 U/L (84-246); URIC ACID 3.7 MG/DL (2.6-6.0)
[2022-05-27] MEDS: LR 1,000 ML IV SCH ×2 (18:03→23:21)
[2022-05-27 18:08] LABS: CREATININE,RANDOM URINE 52.2 MG/DL; TOTAL PROTEIN,RANDOM URINE 28.9 MG/DL (0.0-12.0)
[2022-05-28 01:56] VITALS: BP 132/78
[2022-05-28] MEDS ORDERED: DOCUSATE SODIUM 100MG CAPSULE PO PRN (02:05)
[2022-05-28] MEDS ORDERED: DIBUCAINE 1% OINTMENT 30GM TOP PRN (02:05)
[2022-05-28] MEDS ORDERED: ACETAMINOPHEN TAB 650MG DOSE (2X325MG) PO PRN (02:05)
[2022-05-28] MEDS ORDERED: MOM 30ML SUSPENSION UDC PO PRN (02:05)
[2022-05-28] MEDS ORDERED: RHOGAM 300 MCG (1500 IU) INJ (J2790) IM SCH (02:05)
[2022-05-28] MEDS ORDERED: ANUSOL HC CREAM 30GM TOP PRN (02:05)
[2022-05-28 02:12] VITALS: BP 121/72
[2022-05-28 02:28] VITALS: BP 127/60
[2022-05-28 02:42] VITALS: BP 133/67
[2022-05-28] MEDS: IBUPROFEN 800 MG TAB PO PRN ×2 (02:53→16:46)
[2022-05-28 06:04] VITALS: BP 120/68
[2022-05-28] MEDS: IBUPROFEN 600MG TAB PO PRN (09:04)
[2022-05-28] MEDS: PRENATAL VITAMINS CHEWABLE TABLET PO SCH (09:04)
[2022-05-28 18:00] VITALS: BP 129/83
[2022-05-28] MEDS: ACETAMINOPHEN 500 MG TAB PO PRN (19:57)
[2022-05-29] MEDS: IBUPROFEN 600MG TAB PO PRN (05:27)
[2022-05-29 06:02] VITALS: BP 115/59
[2022-05-29] MEDS: ACETAMINOPHEN 500 MG TAB PO PRN (08:52)
[2022-05-29] MEDS: PRENATAL VITAMINS CHEWABLE TABLET PO SCH (08:52)
[2022-05-29] MEDS ORDERED: IBUP80TA PO (11:43)
[2022-05-29] MEDS ORDERED: ACET1TAB55 PO (11:43)
[2022-05-30] MEDS ORDERED: MEASLES,MUMPS,RUBELLA VACCINE INJ (MMR-II) (90707) SC.IMMUN ONE (09:00)
== END 2022-05-29 12:12 | disposition home or self-care (01) | DRG 560 ==
LOC: M LDI 12:02 → M OBS 05-28 03:58
PROVIDERS: ADMIT Advanced Practice Midwife; ATTEND Advanced Practice Midwife
PROC: 10E0XZZ Delivery of Products of Conception, External Approach (ICD-10-PCS; principal; 2022-05-28)
PROC: 0HQ9XZZ Repair Perineum Skin, External Approach (ICD-10-PCS; 2022-05-28)
DX: O14.94 Unspecified pre-eclampsia, complicating childbirth (principal); O99.824 Streptococcus B carrier state complicating childbirth; Z37.0 Single live birth; Z3A.38 38 weeks gestation of pregnancy; Z79.899 Other long term (current) drug therapy; O42.02 Full-term premature rupture of membranes, onset of labor within 24 hours of rupture

== ENCOUNTER → 2025-01-23 | Outpatient (CLI) | payer OTHER ==
[~2025-01-23] MED LIST changes: +ACET1TAB55 PO; +ONDA-282 PO; -ONDA4TAB6 PO
[2025-01-23 18:49] LABS: BASO # 0.1 10^3/uL (0.0-0.2); BASO % 0.8 % (0.0-1.0); EOS # 0.4 10^3/uL (0.0-0.5); EOS % 5.4 % (0.0-3.0); HEMATOCRIT 43.4 % (36.0-47.0); HEMOGLOBIN 13.6 g/dl (12.0-15.5); LYMPH # 2.4 10^3/uL (1.5-5.0); LYMPH % 33.8 % (24.0-44.0); MEAN CORPUSCULAR HEMOGLOBIN 26.9 pg (27.0-33.0); MEAN CORPUSCULAR HGB CONC 31.3 g/dl (32.0-36.5); MEAN CORPUSCULAR VOLUME 85.8 fl (80.0-96.0); MONO # 0.6 10^3/uL (0.0-0.8); MONO % 7.9 % (2.0-8.0); NEUTROPHILS # 3.7 10^3/uL (1.5-8.5); PLATELET COUNT, AUTOMATED 251 10^3/uL (150-450); RED BLOOD COUNT 5.06 10^6/uL (4.00-5.40); WHITE BLOOD COUNT 7.1 10^3/uL (4.0-10.0)
[2025-01-23 18:57] LABS: FREE T4 1.07 NG/DL (0.89-1.76); PROLACTIN 14.54 NG/ML; THYROID STIMULATING HORMONE 2.03 uIU/ML (0.55-4.78)
[2025-01-25 09:03] LABS: DEHYDROEPIANDROSTERONE SULFATE 168 mcg/dL (14-349)
== END ==
LOC: M PLALAB 14:42
PROVIDERS: ATTEND Advanced Practice Midwife
DX: N92.6 Irregular menstruation, unspecified (principal); N93.0 Postcoital and contact bleeding; N88.8 Other specified noninflammatory disorders of cervix uteri; N94.10 Unspecified dyspareunia

== ENCOUNTER → 2025-01-23 | Outpatient (REF) | payer OTHER ==
[2025-01-25 14:23] LABS: HPV APTIMA Not Detected (Not Detected)
== END ==
LOC: M PLALAB 14:43
PROVIDERS: ATTEND Advanced Practice Midwife
DX: N92.6 Irregular menstruation, unspecified (principal); Z12.4 Encounter for screening for malignant neoplasm of cervix; Z11.51 Encounter for screening for human papillomavirus (HPV); N93.0 Postcoital and contact bleeding
CPT/HCPCS: 87624; G0123

== ENCOUNTER → 2025-02-20 | Outpatient (CLI) | payer OTHER | LOC: M WHC 11:55 | PROVIDERS: ATTEND Advanced Practice Midwife | DX: Z11.51 Encounter for screening for human papillomavirus (HPV) (principal); N92.6 Irregular menstruation, unspecified; R14.0 Abdominal distension (gaseous); N94.10 Unspecified dyspareunia; N93.0 Postcoital and contact bleeding; N85.8 Other specified noninflammatory disorders of uterus ==